=== PATIENT | female | born 1950 | race Asian ===

== ENCOUNTER 2023-07-05 15:59 | Emergency (ER) | payer OTHER, MEDICARE ==
[~2023-07-05] VITALS: Ht 167.6 cm; Wt 65.8 kg
[2023-07-05 16:08] VITALS: BP_SYST 141; PULSE 79; RESP 16; TEMP 97.7; O2SAT 97
[2023-07-05] MEDS ORDERED: TETRACAINE HCL/PF 0.5% OPHTHALMIC DROPS 4 ML OP ONE (16:45)
[2023-07-05] MEDS ORDERED: FLUORESCEIN SODIUM 1 MG OPHTHALMIC STRIP OP ONE (16:45)
[2023-07-05] MEDS ORDERED: ERYEYE EACH EYE (17:05)
[2023-07-05 17:25] VITALS: BP_SYST 141; PULSE 81; RESP 16; TEMP 98; O2SAT 96
== END 2023-07-05 17:24 | disposition home or self-care (01) ==
LOC: SED 15:59
DX: S05.02XA Injury of conjunctiva and corneal abrasion without foreign body, left eye, initial encounter (principal); S05.01XA Injury of conjunctiva and corneal abrasion without foreign body, right eye, initial encounter; E03.9 Hypothyroidism, unspecified; Z79.899 Other long term (current) drug therapy; X58.XXXA Exposure to other specified factors, initial encounter; Y93.89 Activity, other specified; Y92.89 Other specified places as the place of occurrence of the external cause; Y99.8 Other external cause status
CPT/HCPCS: 99283